=== PATIENT | male | born 1975 | race African-American/Black ===

== ENCOUNTER → 2022-12-30 | Day surgery (SDC) | payer MEDICARE, OTHER ==
[~2022-12-30] MED LIST: ACETAMINOPHEN 1000 MG/100 ML 100 ML IV ONE; AMITRIPTYLINE H25 MG PO; ARGINAID POWDE1 EACH PO; ARTIFICIAL TEAR15 ML OD; ARTIFICIAL TEAR15 ML OU; BOTULINUM TOXIN TYPE A 100 UNIT VIAL IM ONE; BUPIVACAINE 0.25% 30ML SDV ONE; BUPIVACAINE HCL 0.5% INJ 30 ML VIAL INJ ONE; BUSPIRONE HCL10 MG PO; CARVEDILOL12.5 MG PO; CLONIDINE HCL0.3 MG PO; DEXAMETHASONE SOD PHOS INJ 4 MG/ML SDV ONE; DEXMEDETOMIDINE HCL 0 ML ONE; DIOVAN160 MG PO; DOCUSATE SODIU100 MG PO; DULCOLAX10 MG PR; FENTANYL CITRATE/PF 100MCG/2 ML INJ ONE; GENTAMICIN 80MG/NS 100 ML 200 ML IV ONE; GLYCOPYRROLATE INJ 0.2 MG/ML VIAL ONE; GOLYTELY SOLU4000 M1; HYDRALAZINE HC100 MG PO; HYDRALAZINE HCL25 MG PO; HYDROCHLOROTHIA25 MG PO; HYDROCODON-ACE1 EA11 PO; HYDROXYZINE HCL25 MG PO; INSULIN LI100 UNIT/2 SC; IOPAMIDOL 610MG/1ML 300 MG/ML VIAL IV ONE; LACTATED RINGER'S 1,000 ML ONE; LACTULOSE10 GM/151 PO; LANTUS 3ML100 UNITS/ SC; LIDOCAINE HCL 2% LOCAL INJ 5 ML SDV VIAL INJ ONE; LIDOCAINE PAIN1 EACH TOP; LORAZEPAM2 MG/1 M1 PO; MELATONIN3 MG PO; METFORMIN HCL850 MG PO; METHOCARBAMOL750 MG PO; MIRALAX17 GM PO; NEOSTIGMINE 1 MG/ML 10ML VIAL ONE; NEURONTIN100 MG PO; NIFEDIPINE10 MG PO; NITROGLYCERIN/D5W 200 MCG/ML 250 ML ONE; NITROGLYCERIN0.4 MG SL; OMEPRAZOLE40 MG PO; ONDANSETRON HCL INJ 2MG/ML 2ML 2 MG/ML VIAL ONE; ONDANSETRON ODT8 MG PO; OZEMPIC0.25 MG/0. SC; POVIDONE IODINE 0.05% 0.05 % ML PO ONE; PROPOFOL IV EMULSION 10 MG/ML 20 ML VIAL ONE; PROTONIX20 MG PO; ROCURONIUM BROMIDE 10 MG/ML 5ML VIAL IV ONE; SERTRALINE HCL50 MG PO; SPIRONOLACTONE25 MG PO; Sodium Chloride 0.9% 50ML Bag ONE; TUMS ULTRA400 MG PO; TYLENOL325 MG PO; VITAMIN C500 MG PO; XANAX0.5 MG PO
[2022-12-30 07:42] LABS: BASOPHILS % 0.3 % (0.0-1.0); EOSINOPHILS # (AUTO) 0.2 (0.0-0.4); EOSINOPHILS % 1.4 % (0.0-6.0); HEMATOCRIT 28.9 % (38.2-49.6); HEMOGLOBIN 8.8 g/dL (14.0-18.0); LYMPHOCYTES % 23.7 % (18.0-39.1); MEAN CORPUSCULAR HEMOGLOBIN 24.4 pg (28-32); MEAN CORPUSCULAR HGB CONC 30.4 g/dL (31-35); MEAN CORPUSCULAR VOLUME 80.3 fL (81-99); MONOCYTES # (AUTO) 1.1 (0.2-0.8); NEUTROPHILS # (AUTO) 8.1 (2.1-6.9); NEUTROPHILS % 64.6 % (38.7-80.0); PLATELET COUNT 395 x10e3/uL (140-360); RED CELL DISTRIBUTION WIDTH 16.5 % (11.7-14.4)
[2022-12-30 08:05] LABS: ANION GAP 14.7 mmol/L (8-16); CREATININE, SERUM 0.78 mg/dL (0.72-1.25); POTASSIUM 4.7 mmol/L (3.5-5.1)
[2022-12-30 12:40] VITALS: BP 156/96
== END | disposition home or self-care (01) ==
LOC: OR 06:53
PROVIDERS: ATTEND Urology
DX: N47.1 Phimosis (principal); N39.41 Urge incontinence; Z43.5 Encounter for attention to cystostomy; N36.0 Urethral fistula; Q54.9 Hypospadias, unspecified; N35.919 Unspecified urethral stricture, male, unspecified site; N32.89 Other specified disorders of bladder; N31.9 Neuromuscular dysfunction of bladder, unspecified; N43.3 Hydrocele, unspecified; N39.0 Urinary tract infection, site not specified; D41.02 Neoplasm of uncertain behavior of left kidney; E66.9 Obesity, unspecified; I10 Essential (primary) hypertension; E11.9 Type 2 diabetes mellitus without complications; E78.00 Pure hypercholesterolemia, unspecified; Z79.4 Long term (current) use of insulin; Z79.84 Long term (current) use of oral hypoglycemic drugs; Z79.85 Long-term (current) use of injectable non-insulin antidiabetic drugs; Z79.82 Long term (current) use of aspirin; Z79.899 Other long term (current) drug therapy; Z68.39 Body mass index [BMI] 39.0-39.9, adult; Z87.891 Personal history of nicotine dependence
CPT/HCPCS: 36415; 51705; 52287; 54161; 74420; 80048; 82948; 85025; 88304; 93005; C1758; C1769; J0131; J0587; J0713; J1100; J1580; J2001; J2405; J2704; J2710; J3010; J7121; Q9967